=== PATIENT | male | born 1975 | race Caucasian/White ===

== ENCOUNTER 2016-10-06 16:16 | Emergency (ER) | payer SELFPAY ==
--- NOTE | 2016-10-06 16:53 | UCPHY ---
H & P Time Seen by Provider: 10/06/16 16:48 Patient Type: New HPI/ROS: CHIEF COMPLAINT: Jaw tightness. HISTORY OF PRESENT ILLNESS: The patient is a 41-year-old male who presents with jaw tightness for 2 hours. He reports that the tightness began after hiking, right after he took a sip of beer at a restaurant. This caused him to have difficulty speaking and he still can't fully open his mouth. The tightness does not radiate. It is equal on both sides. None of this discomfort radiates into the neck or shoulders or arms. The arms of health did feel a little tingly as did his hands and feet. That has since subsided. He did not get the seasonal influenza He admits occasional, associated palpitations and bilateral arm numbness. He notes being made aware of difficult family news a few hours prior to onset - that his mother's cancer was in fact terminal. He denies new medications, recent sickness, nausea, vomiting. He denies recent long plane or car rides. He has no significant family history. He does admit to having a chronic drinker problems. It has been essentially heavy drinking nightly for at least 2 months. He has distinctly has had a problem off and on for the last several years. He also has been thinking of cutting back. [place]ver slow time thus he has been drinking more as well. He does have indication have a tremor in the morning but does not find that he needs to drink calm his nerves. Finally, he has never experienced a blackout episode. He himself is planning to come back intending discharge He DVT/PE risk factors-none Cardiac risk factors-none Aortic dissection risk factors-none REVIEW OF SYSTEMS: Constitutional: No fever, no chills. Eyes: No diplopia. ENT: No sore throat. Cardiovascular: Palpitations. No chest pain. Respiratory: No cough, no shortness of breath, no wheezing. Gastrointestinal: No nausea vomiting or diarrhea. No abdominal pain. Genitourinary: No hematuria or frequency. Musculoskeletal: No back pain. Skin: No rashes. Neurological: No headache. 10 point ROS otherwise negative Past Medical/Surgical History: Testicular cancer. Social History: Social alcohol use. Physical Exam: General Appearance: Alert, anxious, mucous membranes dry. Afebrile. Normal phonation. No respiratory distress. Eyes: Pupils equal and round no pallor or injection. No icterus ENT, Mouth: Mucous membranes dry. Pharynx without erythema or exudate. TM Clear. He is only able to open his mouth 2 finger breaths. He is however able to chew on my tongue blade and crack at both sides without any pain in the dentition. Neck: No adenopathy. Supple. No JVD. Trachea in midline. Respiratory: There are no retractions, lungs are clear to auscultation. Cardiovascular: Regular rate and rhythm, tachycardic, no murmur. Chest wall: Nontender Abdomen: Soft and nontender, no masses, bowel sounds normal. Neurological: Ox3. No motor weakness. Sensation intact. Gait nl. Skin: Warm and dry, no rashes. Musculoskeletal: No joint swelling. Lymph: No lymphadenopathy Extremities: No edema. Homans sign negative. No cords. Psychiatric: Patient is oriented X 3, there is no agitation Constitutional: Initial Vital Signs Temperature (C) 36.4 C 10/06/16 16:52 Heart Rate 120 H 10/06/16 16:52 Respiratory Rate 18 10/06/16 16:52 Blood Pressure 153/106 H 10/06/16 16:52 O2 Sat (%) 97 10/06/16 16:52 O2 Delivery Mode Room Air Allergies/Adverse Reactions: No Known Allergies Allergy (Unverified 10/06/16 16:45) Home Medications: Medication Instructions Recorded chlordiazePOXIDE [Librium 25 mg 50 mg PO TID PRN #25 cap 10/06/16 (*)] Medical Decision Making - Diagnostics EKG Interpretation: 12-LEAD EKG: Please see the full report in [facility]. My interpretation: Normal sinus rhythm rate 95. Probable left atrial abnormality, left axis deviation. No ischemia. Imaging: Two-view chest. Interpreted by radiologist. Films reviewed by me. Negative chest x-ray. Normal x-ray - no signs of recurrence of his remote history of testicular cancer which evidently was stage I - not requiring chemotherapy. Last chest film 5 years. ED Course/Re-evaluation: An IV was established and labs ordered. Chest x-ray and EKG ordered. 1mg IV Ativan administered for anxiety. 1800: Reassessed patient. His temperature is 37.5 - he appears flushed. He denies urinary symptoms or diarrhea. He has no sinus pain on exam. He is tachycardic at 115. Lactic acid lab ordered. 1849: Patient's temperature 37.0. His lactic acid is negative at 1.9. Laboratory studies show improving degree of anion gap. He has no underlying lactic acidosis. In view of the constellation symptoms and his heavy drinking last night and feeling dehydrated, over-exerted, and has anxiety related to his underlying alcohol problem and food difficult news that he heard today 2055: Reassessed patient. He tells me he has been drinking heavily over the holidays and today he woke up with tremors. Last night he drank 10 beers and some whisky. He describes himself as a "problem drinker." We ongoing discussion of therapeutic options. He would like to attend his islam that meets this next Friday. In the meantime I fully expect him to have a nahum Flores this week and would like them try some Librium. Differential Diagnosis: ED differential includes but not limited to: Anxiety, ACS, aortic dissection, pulmonary embolus, dental abscess, trismus secondary to tetanus - Data Points Laboratory Results: Laboratory Results 10/06/16 17:15 10/06/16 20:15 10/06/16 10/06/16 10/06/16 20:15 18:20 18:15 WBC RBC Hgb Hct MCV MCH MCHC RDW Plt Count MPV Neut % (Auto) Lymph % (Auto) [place] % (Auto) Eos % (Auto) Baso % (Auto) Nucleat RBC Rel Count Absolute Neuts (auto) Absolute Lymphs (auto) Absolute Monos (auto) Absolute Eos (auto) Absolute Basos (auto) Absolute Nucleated RBC Immature Gran % Immature Gran # D-Dimer VBG Lactic Acid 1.9 mmol/L (0.7-2.1) Sodium 142 mEq/L (134-144) Potassium 4.0 mEq/L (3.5-5.2) Chloride 107 mEq/L (97-110) Carbon Dioxide 19 L mEq/l (22-31) Anion Gap 16 mEq/L (8-16) BUN 13 mg/dL (7-23) Creatinine 0.8 mg/dL (0.7-1.3) Estimated GFR > 60 Glucose 77 mg/dL (70-100) Calcium 8.4 L mg/dL (8.5-10.4) Total Bilirubin 1.2 mg/dL (0.1-1.4) Conjugated Bilirubin 0.4 mg/dL (0.0-0.5) Unconjugated Bilirubin 0.8 mg/dL (0.0-1.1) AST 30 IU/L (17-59) ALT 39 IU/L (21-72) Alkaline Phosphatase 62 IU/L (38-126) Troponin I < 0.012 ng/mL (0-0.034) Total Protein 6.6 g/dL (6.3-8.2) Albumin 3.6 g/dL (3.5-5.0) Urine Color YELLOW Urine Appearance CLEAR Urine pH 5.0 (5.0-7.5) Ur Specific [place] >= 1.030 (1.002-1.030) Urine Protein NEGATIVE (NEGATIVE) Urine Ketones 3+ H (NEGATIVE) Urine Blood NEGATIVE (NEGATIVE) Urine Nitrate NEGATIVE (NEGATIVE) Urine Bilirubin NEGATIVE (NEGATIVE) Urine Urobilinogen 0.2 EU (0.2-1.0) Ur Leukocyte Esterase NEGATIVE (NEGATIVE) Urine Glucose NEGATIVE (NEGATIVE) 10/06/16 17:15 WBC 14.43 H 10^3/uL (3.80-9.50) RBC 6.19 10^6/uL (4.40-6.38) Hgb 16.9 g/dL (13.7-17.5) Hct 49.9 % (40.0-51.0) MCV 80.6 L fL (81.5-99.8) MCH 27.3 L pg (27.9-34.1) MCHC 33.9 g/dL (32.4-36.7) RDW 13.0 % (11.5-15.2) Plt Count 373 10^3/uL (150-400) MPV 9.1 fL (8.7-11.7) Neut % (Auto) 79.9 H % (39.3-74.2) Lymph % (Auto) 10.7 L % (15.0-45.0) [place] % (Auto) 7.9 % (4.5-13.0) Eos % (Auto) 0.1 L % (0.6-7.6) Baso % (Auto) 0.4 % (0.3-1.7) Nucleat RBC Rel Count 0.0 % (0.0-0.2) Absolute Neuts (auto) 11.54 H 10^3/uL (1.70-6.50) Absolute Lymphs (auto) 1.54 10^3/uL (1.00-3.00) Absolute Monos (auto) 1.14 H 10^3/uL (0.30-0.80) Absolute Eos (auto) 0.01 L 10^3/uL (0.03-0.40) Absolute Basos (auto) 0.06 10^3/uL (0.02-0.10) Absolute Nucleated RBC 0.00 10^3/uL (0-0.01) Immature Gran % 1.0 % (0.0-1.1) Immature Gran # 0.14 H 10^3/uL (0.00-0.10) D-Dimer < 0.27 ug/mLFEU (0.00-0.50) VBG Lactic Acid Sodium 140 mEq/L (134-144) Potassium 4.0 mEq/L (3.5-5.2) Chloride 104 mEq/L (97-110) Carbon Dioxide 18 L mEq/l (22-31) Anion Gap 18 mEq/L (8-16) BUN 14 mg/dL (7-23) Creatinine 0.9 mg/dL (0.7-1.3) Estimated GFR > 60 Glucose 91 mg/dL (70-100) Calcium 9.7 mg/dL (8.5-10.4) Total Bilirubin Conjugated Bilirubin Unconjugated Bilirubin AST ALT Alkaline Phosphatase Troponin I < 0.012 ng/mL (0-0.034) Total Protein Albumin Urine Color Urine Appearance Urine pH Ur Specific [place] Urine Protein Urine Ketones Urine Blood Urine Nitrate Urine Bilirubin Urine Urobilinogen Ur Leukocyte Esterase Urine Glucose Medications Given: Discontinued Medications Sodium Chloride (Ns) 1,000 mls @ 0 mls/hr IV ONCE ONE PRN Reason: Wide Open Stop: 10/06/16 19:14 Last Admin: 10/06/16 19:13 Dose: 1,000 mls Lorazepam (Ativan 1mg/Ml Iv Syr) 1 mg IV ONCE ONE Stop: 10/06/16 17:06 Last Admin: 10/06/16 17:45 Dose: 1 mg Departure - Departure Disposition: Home, Routine, Self-Care Clinical Impression: Dehydration, Anxiety, Panic attack Condition: Good Instructions: Dehydration (ED) Additional Instructions: Use Librium as instructed for tremors. Drink plenty of fluids. Return to Urgent Care or the emergency department if you experience serious worsening of condition. Referrals: NONE *PRIMARY CARE P,. [Primary Care Provider] - As per Instructions Prescriptions: chlordiazePOXIDE [Librium 25 mg (*)] 50 mg PO TID PRN #25 cap PRN Reason: Tremors - PQRS PQRS Measurement: Not applicable Report Scribed for: Mak Lynn Report Scribed by: Eric Hays Date of Report: 10/06/16 Time of Report: 17:02
[2016-10-06] MEDS ORDERED: *PHM DO NOT USE-LORazepam 1 MG/ML IV NEWBORN SYR IV ONE (17:05)
--- NOTE | 2016-10-06 17:15 | CPEKG ---
Heart Rate: 95 RR Interval: 632 P-R Interval: 140 QRSD Interval: 90 QT Interval: 348 QTC Interval: 438 P Vincent: 71 QRS Vincent: -42 T Wave Vincent: 55 EKG Severity - BORDERLINE ECG - EKG Impression: SINUS RHYTHM EKG Impression: PROBABLE LEFT ATRIAL ABNORMALITY EKG Impression: LEFT AXIS DEVIATION Electronically Signed By: Mak Lynn 07-Oct-2016 00:12:11
[2016-10-06 17:22] LABS: ABSOLUTE IMMATURE GRANULOCYTES 0.14 10^3/uL (0.00-0.10); ADD DIFF? NO; ADD MORPH? NO; ADD SCAN? NO; ATYPICAL LYMPHOCYTE FLAG 10 (0-99); FRAGMENT RBC FLAG 0 (0-99); HEMATOCRIT 49.9 % (40.0-51.0); HEMOGLOBIN 16.9 g/dL (13.7-17.5); LEFT SHIFT FLG 0 (0-99); LIPEMIA HEMOLYSIS FLAG 90 (0-99); MEAN CELL HEMOGLOBIN 27.3 pg (27.9-34.1); MEAN CELL HEMOGLOBIN CONCENTR. 33.9 g/dL (32.4-36.7); MEAN CELL VOLUME 80.6 fL (81.5-99.8); MEAN PLATELET VOLUME 9.1 fL (8.7-11.7); PLATELET CLUMPS FLAG 10 (0-99); PLATELET COUNT 373 10^3/uL (150-400); RED BLOOD CELL COUNT 6.19 10^6/uL (4.40-6.38)
[2016-10-06 17:40] LABS: ANION GAP 18 mEq/L (8-16); CALCIUM 9.7 mg/dL (8.5-10.4); CARBON DIOXIDE 18 mEq/l (22-31); CHLORIDE 104 mEq/L (97-110); CREATININE 0.9 mg/dL (0.7-1.3); GLOMERULAR FILTRATION RATE > 60; GLUCOSE 91 mg/dL (70-100); SODIUM 140 mEq/L (134-144)
[2016-10-06] MEDS ORDERED: LORazepam 2 MG/ML INJ ONE (17:42)
[2016-10-06 17:52] LABS: TROPONIN I < 0.012 ng/mL (0-0.034)
--- NOTE | 2016-10-06 17:55 | DX ---
Chest, Two Views at 1724 hours History: Jaw pain. History of testicular cancer. Comparison: 2009 Findings: Cardiac silhouette is within normal range. No definite pulmonary nodules. Upper thoracic le voscoliosis and mid thoracic dextroscoliosis. No pneumonia, congestive heart failure, pleural effusio n, or pneumothorax. Impression: No acute pulmonary disease.
[2016-10-06 18:45] LABS: COLOR YELLOW; LEUKOCYTE ESTERASE,URINE NEGATIVE (NEGATIVE); NITRITE,URINE NEGATIVE (NEGATIVE)
[2016-10-06 18:50] VITALS: TEMP 98.6
[2016-10-06] MEDS ORDERED: NS 1,000 ML IV ONE (19:13)
[2016-10-06 20:32] LABS: ALANINE AMINOTRANSFERASE 39 IU/L (21-72); ALBUMIN 3.6 g/dL (3.5-5.0); ALKALINE PHOSPHATASE 62 IU/L (38-126); ASPARTATE AMINOTRANSFERASE 30 IU/L (17-59); BILIRUBIN,TOTAL 1.2 mg/dL (0.1-1.4); BILIRUBIN-CONJUGATED 0.4 mg/dL (0.0-0.5); BILIRUBIN-UNCONJUGATED 0.8 mg/dL (0.0-1.1); TOTAL PROTEIN 6.6 g/dL (6.3-8.2)
[2016-10-06 20:37] LABS: ANION GAP 16 mEq/L (8-16); CALCIUM 8.4 mg/dL (8.5-10.4); CARBON DIOXIDE 19 mEq/l (22-31); CHLORIDE 107 mEq/L (97-110); CREATININE 0.8 mg/dL (0.7-1.3); GLOMERULAR FILTRATION RATE > 60; GLUCOSE 77 mg/dL (70-100); SODIUM 142 mEq/L (134-144)
[2016-10-06 20:44] LABS: TROPONIN I < 0.012 ng/mL (0-0.034)
[2016-10-06 23:03] VITALS: BP 148/95; PULSE 109; RESP 22; O2SAT 95
== END 2016-10-06 21:21 | disposition home or self-care (01) ==
LOC: CED 16:16
DX: E86.0 Dehydration (principal); F41.0 Panic disorder [episodic paroxysmal anxiety]; F10.20 Alcohol dependence, uncomplicated; Z85.47 Personal history of malignant neoplasm of testis
CPT/HCPCS: 71020-PO; 80048-PO; 80076-PO; 81003-PO; 83605-PO; 84484-PO; 85025-PO; 85378-PO; 93010-PO; 96361-PO; 96374-PO; 99205-PO; G0463-PO